=== PATIENT | female | born 1965 | race Caucasian/White ===

== ENCOUNTER 2019-08-28 06:20 | Day surgery (SDC) | payer OTHER, SELFPAY ==
[2019-08-25 11:45] VITALS: BMI 26.6
[2019-08-28 06:39] LABS: OR HCG Qualitative Urine Negative (Negative)
[2019-08-28 06:41] VITALS: BP 124/75; PULSE 74; RESP 18; TEMP 36.9; O2SAT 100
[2019-08-28] MEDS: sodium chloride 0.9% 1,000 ML 30 ML IV ×2 (06:46→07:27)
--- NOTE | 2019-08-28 06:56 | W.PM.OPSUD ---
Surgery/Procedure H&P Update DATE OF PROCEDURE: August 28, 2019 DATE H&P PERFORMED: 08/25/19 H&P UPDATE INFORMATION: I have reviewed H&P completed within last 30 days, I have examined patient prior to procedure and No changes to prior documentation PREOP DIAGNOSIS: Screening colonoscopy PLANNED PROCEDURE: Operation Date: 08/28/19 08:05 Proposed Procedures p Colonoscopy(Not Applicable) - Isreal Rodriguez MD
--- NOTE | 2019-08-28 07:30 | ANES.PREANE2 ---
Pre-Anesthetic Assessment Pre-Anesthetic Assessment: Height/Weight: Height 1.55 m Weight 63.957 kg Temp Pulse Resp BP Pulse Ox 98.4 F 74 18 124/75 100 08/28/19 06:41 08/28/19 06:41 08/28/19 06:41 08/28/19 06:41 08/28/19 06:41 Preop Diagnosis: Screening colonoscopy Proposed Procedure: Operation Date: 08/28/19 08:05 Proposed Procedures p Colonoscopy(Not Applicable) - Isreal Rodriguez MD Was Beta Kelsea taken within 24 hours: N/A Last intake: Intake Last Liquid Date 08/27/19 Last Liquid Time 20:00 Last Solid Date 08/26/19 Social: Social History: No alcohol and No tobacco Exam: Pre-Anes Outpt Exam: alert, oriented x 3, clear to auscultation bilaterally and regular rate & rhythm Airway: Submandibular: WNL Cervical ROM: WNL MP: 1 History/ROS: No significant history except as noted Pulmonary: Pulmonary: None reported CV/HEM: CV/HEM: None reported : : None reported Hepatic: Hepatic: None reported GI: GI: None reported Metabolic: Metabolic: None reported Musc/skel: Musc/skel: None reported Neuropsych: Neuropsych: None reported Anesthetic Plan: ASA status: 1 Anesthesia: MAC Risk of > 500 ml blood loss (7ml/kg in children): No Meds/Allergies Current Medications: Current Medications Generic Name Dose Route Start Last Admin Trade Name Freq PRN Reason Stop Dose Admin Sodium Chloride 1,000 mls @ 30 ml s/hr 08/28/19 06:30 08/28/19 07:25 Sodium Chloride 0.9% IV 08/29/19 06:29 Infused .Q24H EMMY Infusion Sodium Chloride 1,000 mls @ 30 ml s/hr 08/28/19 06:30 08/28/19 07:27 Sodium Chloride 0.9% IV 30 mls/hr .Q24H EMMY Administration PFSH Anesthesia PFSH: Surgical History History of appendectomy (1998) Open procedure via a midline infraumbilical incision for ruptured appendix History of tonsillectomy Family History Mother Hypertension Hypercholesterolemia Family history of thyroid problem Father Heart disease Denies family history of Anesthesia complication Bleeding disorder Social History Smoking and tobacco status: never smoked History of recent travel: No Data Anesthesia Other Labs: Laboratory Results - last 48 hr 08/28/19 06:37 Urine HCG, Qual Negative Cardiac Studies: No Data to Display
[2019-08-28 08:03] VITALS: BP 103/49; PULSE 70; RESP 16; TEMP 36.4; O2SAT 100
[2019-08-28 08:18] VITALS: BP 101/47; PULSE 62; RESP 18; O2SAT 100
== END 2019-08-28 08:25 | disposition home or self-care (01) ==
PROVIDERS: Visit Provider Surgery
PROC: 0DJD8ZZ Inspection of Lower Intestinal Tract, Via Natural or Artificial Opening Endoscopic (ICD-10-PCS; CPT 45378; principal; 2019-08-28 08:00)
DX: Z12.11 Encounter for screening for malignant neoplasm of colon (principal); K57.30 Diverticulosis of large intestine without perforation or abscess without bleeding
CPT/HCPCS: 12345; 45378; 84703; J2001; J2704; J7030

== ENCOUNTER 2019-09-10 08:27 | Emergency (ER) | payer OTHER, SELFPAY ==
[2019-09-10 08:43] VITALS: BP 131/80; PULSE 70; RESP 18; TEMP 36.8; O2SAT 100; BMI 26.4
--- NOTE | 2019-09-10 09:04 | ED_ITS ---
HPI - Wound/Laceration General: Chief Complaint: Wound/Laceration Stated Complaint: hand lac Time Seen by Provider: 09/10/19 08:54 History of Present Illness: HPI narrative: Laceration to the webspace between her index and middle finger that occurred while preparing food Onset (ago): minute(s) Location: other Place: home Patient tetanus UTD: No Context: accidental and sharp object use Associated symptoms: Reports no associated symptoms Review of Systems General: Reports: 10 or more systems reviewed and unremarkable except in HPI and below PFSH ED PFSH: Surgical History History of appendectomy (1998) Open procedure via a midline infraumbilical incision for ruptured appendix History of tonsillectomy Status post colonoscopy (08/28/19) Repeat in 10 years Family History Mother Hypertension Hypercholesterolemia Family history of thyroid problem Father Heart disease Denies family history of Anesthesia complication Bleeding disorder Social History Smoking and tobacco status: never smoked History of recent travel: No Physical Exam Extremity: NARRATIVE EXTREMITY EXAM: 0.5 cm laceration to the webspace between the index and middle finger Procedures Laceration Laceration 1: Site: hand Side (If applicable): left Size (cm): 1.5 Description: linear Depth: simple, single layer Local Anesthetic: lidocaine 1% and with epi Amount of anesthesia used (mL): 6 Pre-repair: wound explored Skin layer closed with: nylon Size (cm): 4-0 Number of sutures: 4 Technique: simple, interrupted Course Vital Signs: Vital signs: Vital Signs Temperature 98.3 F 09/10/19 08:43 Pulse Rate 70 09/10/19 08:43 Respiratory Rate 18 09/10/19 08:43 Blood Pressure 131/80 09/10/19 08:43 Pulse Oximetry 100 09/10/19 08:43 Discharge Plan Discharge Patient Disposition: Home, Self-Care Clinical Impression: Laceration Condition: Stable Prescriptions: New Tylenol-Codeine #3 300-30 mg tablet 1 tab PO Q6H PRN (Reason: pain) Qty: 10 RF: 0 No Action omega-3 fatty acids 500 mg capsule 500 mg PO DAILY RF: 0 multivitamin Tablet 1 tab PO DAILY RF: 0 calcium carbonate-vitamin D3 600 mg(1,500mg) -800 unit tablet 1 tab PO DAILY RF: 0 apple cider vinegar 600 mg Capsule 1 mg PO DAILY RF: 0 magnesium 250 mg Tablet 250 mg PO DAILY RF: 0 garlic Tablet 2,000 mg PO DAILY RF: 0 Curcumin 95 % Powder 1 % MISCELLANEOUS DAILY RF: 0 Discharge Orders: Discharge Order (Routine); Ordered 09/10/19 Ordered By: Parmjit Finnegan Patient Instructions: Laceration (ED) Coding Level of Care Code ED Plastic Cablemaking Machine Operator for Joe Willingham
[2019-09-10] MEDS: tetanus-diphtheria tox (adult) 0.5 mL SDV IM (09:36)
== END 2019-09-10 09:41 | disposition home or self-care (01) ==
PROVIDERS: Emergency Provider Family Medicine
DX: S61.412A Laceration without foreign body of left hand, initial encounter (principal); X58.XXXA Exposure to other specified factors, initial encounter; Z23 Encounter for immunization
CPT/HCPCS: 12001; 12345; 90714; 99281; 99282; J2001

== ENCOUNTER → 2019-09-25 11:16 | Outpatient (BNVA) | payer OTHER, SELFPAY | PROVIDERS: Visit Provider Family Medicine | DX: Z13.6 Encounter for screening for cardiovascular disorders (principal); Z48.02 Encounter for removal of sutures | CPT/HCPCS: 80053; 85025 ==

== ENCOUNTER 2019-11-02 14:33 | Outpatient (CLI) | payer OTHER, SELFPAY ==
--- NOTE | 2019-11-02 15:00 | MM_ITS ---
WS: [id number] Bilateral screening digital mammogram, 11/02/2019 Clinical Data: screening mammogram Comparison: 07/11/2018. Findings: The breast parenchymal pattern shows heterogeneous density No spiculated masses or clustered calcific ations are seen. There are no secondary signs of carcinoma. MM/[place] [id number] Impression: 1. Negative bilateral mammogram unchanged. 2. Recommend annual screening mammograms. BIRADS: 1-Negative FOLLOW UP: 1 Year Follow-up The CAD checker loader was used.
== END 2019-11-02 14:34 | disposition home or self-care (01) ==
LOC: RADSHAW 14:37
PROVIDERS: PCP Family Medicine; Visit Provider Family Medicine
DX: Z12.31 Encounter for screening mammogram for malignant neoplasm of breast (principal)
CPT/HCPCS: 77067

== ENCOUNTER → 2020-07-01 09:16 | Outpatient (BNVA) | payer OTHER, SELFPAY | PROVIDERS: PCP Family Medicine; Visit Provider Family Medicine | DX: Z12.31 Encounter for screening mammogram for malignant neoplasm of breast (principal); Z13.6 Encounter for screening for cardiovascular disorders | CPT/HCPCS: 80053; 80061; 85025 ==

== ENCOUNTER 2020-12-13 11:16 | Outpatient (CLI) | payer OTHER, SELFPAY ==
--- NOTE | 2020-12-13 12:00 | MM_ITS ---
WS: [id number] SCREENING DIGITAL MAMMOGRAM WITH CAD HISTORY: screening mammogram COMPARISON: 11/02/2019 and 07/11/2018 Bilateral CC and MLO views submitted. Computer aided detection analyzed. Breast composition: The breasts are heterogeneously dense, which may obscure small masses. Asymmetric density measuring 1.5 cm in the posterior central LEFT breast on the MLO projection. Canno t definitely identify this on the CC projection. Otherwise the asymmetries are stable. MM/[place] [id number] IMPRESSION: BI-RADS: 0-Incomplete: Need additional imaging evaluation FOLLOW UP: Need Additional Imaging LEFT breast: Spot compression views (MLO). True ML. Ultrasound to follow if abn ormality persists.
== END 2020-12-13 11:17 | disposition home or self-care (01) ==
LOC: RADSHAW 11:19
PROVIDERS: PCP Family Medicine; Visit Provider Family Medicine
DX: Z12.31 Encounter for screening mammogram for malignant neoplasm of breast (principal)
CPT/HCPCS: 77067

== ENCOUNTER 2021-01-03 13:53 | Outpatient (CLI) | payer OTHER, SELFPAY ==
--- NOTE | 2021-01-03 15:00 | MM_ITS ---
WS: [id number] ADDITIONAL VIEWS LEFT MAMMOGRAM LEFT BREAST ULTRASOUND HISTORY: abnormal mammogram COMPARISON: 12/13/2020, 11/02/2019 LEFT MAMMOGRAM: Spot compression views and true ML. Asymmetry nearly completely resolves. Ultrasound will be performed as there is dense fibroglandular t issue present. LEFT BREAST ULTRASOUND 2-D and color Doppler imaging submitted. LEFT breast ultrasound, limited. Ultrasound directed to the upper outer quadrant of the LEFT breast. There is no shadowing or mass hamlet ntified. Normal fibroglandular tissue. MM/[place] [id number] IMPRESSION: BI-RADS: 2-Benign FOLLOW UP: 1 Year Follow-up
--- NOTE | 2021-01-03 15:45 | US_ITS ---
WS: [id number] ADDITIONAL VIEWS LEFT MAMMOGRAM LEFT BREAST ULTRASOUND HISTORY: abnormal mammogram COMPARISON: 12/13/2020, 11/02/2019 LEFT MAMMOGRAM: Spot compression views and true ML. Asymmetry nearly completely resolves. Ultrasound will be performed as there is dense fibroglandular t issue present. LEFT BREAST ULTRASOUND 2-D and color Doppler imaging submitted. LEFT breast ultrasound, limited. Ultrasound directed to the upper outer quadrant of the LEFT breast. There is no shadowing or mass hamlet ntified. Normal fibroglandular tissue. US/US breast LT limited* [id number] IMPRESSION: BI-RADS: 2-Benign FOLLOW UP: 1 Year Follow-up
== END 2021-01-03 13:54 | disposition home or self-care (01) ==
LOC: RADSHAW 13:56
PROVIDERS: PCP Family Medicine; Visit Provider Family Medicine
DX: R92.8 Other abnormal and inconclusive findings on diagnostic imaging of breast (principal)
CPT/HCPCS: 76642; 77065

== ENCOUNTER → 2021-03-05 11:20 | Outpatient (BNVA) | payer OTHER, SELFPAY | PROVIDERS: PCP Family Medicine; Visit Provider Emergency Medicine | DX: Z20.822 Contact with and (suspected) exposure to COVID-19 (principal); U07.1 COVID-19 | CPT/HCPCS: 87426 ==

== ENCOUNTER 2021-03-11 11:33 | Outpatient (CLI) | payer OTHER, SELFPAY ==
[2021-03-11 11:45] VITALS: BP 127/81; PULSE 60; RESP 18; TEMP 36.9; O2SAT 99; BMI 27.3
[2021-03-11 12:16] VITALS: BP 123/75; PULSE 60; RESP 18; O2SAT 99
[2021-03-11 13:20] VITALS: BP 122/74; PULSE 67; RESP 18; TEMP 36.9; O2SAT 99
== END 2021-03-11 11:34 | disposition home or self-care (01) ==
LOC: OPS 11:35
PROVIDERS: PCP Family Medicine; Visit Provider Emergency Medicine
DX: U07.1 COVID-19 (principal)
CPT/HCPCS: 96365

== ENCOUNTER → 2021-06-30 08:41 | Outpatient (BNVA) | payer OTHER, SELFPAY | PROVIDERS: PCP Family Medicine; Visit Provider Family Medicine | DX: Z13.6 Encounter for screening for cardiovascular disorders (principal) | CPT/HCPCS: 80053; 80061; 81000; 85025 ==

== ENCOUNTER 2022-01-08 08:18 | Outpatient (CLI) | payer OTHER, SELFPAY ==
--- NOTE | 2022-01-08 08:29 | MM_ITS ---
WS: [id number] VIEWS: MLO and CC views both breasts. 3D digital tomosynthesis is also included in this exam. Comparison made with prior exam of 07/11/2018, 11/02/2019 and 12/13/2020. Findings: There was no sign of mass, architectural distortion or suspicious calcification in either breast. He terogeneously dense MM/[place] [id number] Impression: BI-RADS: 2-Benign FOLLOW-UP: 1 Year Follow-up This mammogram was also analyzed by the Computer Aided Detection System R2 Imag e Chef Instructor.
== END 2022-01-08 08:19 | disposition home or self-care (01) ==
PROVIDERS: PCP Family Medicine; Visit Provider Family Medicine
DX: Z12.31 Encounter for screening mammogram for malignant neoplasm of breast (principal)
CPT/HCPCS: 77063; 77067

== ENCOUNTER → 2022-06-29 07:52 | Outpatient (BNVA) | payer OTHER, SELFPAY | PROVIDERS: PCP Family Medicine; Visit Provider Family Medicine | DX: Z13.6 Encounter for screening for cardiovascular disorders (principal) | CPT/HCPCS: 80053; 80061; 85025 ==

== ENCOUNTER 2023-01-11 08:22 | Outpatient (CLI) | payer OTHER, SELFPAY ==
--- NOTE | 2023-01-11 08:31 | MM_ITS ---
WS: [id number] SCREENING DIGITAL TOMOSYNTHESIS MAMMOGRAM WITH CAD HISTORY: screening mammogram COMPARISON: 01/08/2022, 12/13/2020 Bilateral CC and MLO with tomosynthesis views submitted. Synthetic mammography reviewed. Computer aid ed detection analyzed. Breast composition: The breasts are heterogeneously dense, which may obscure small masses. No suspici ous masses, microcalcifications or architectural distortion. IMPRESSION: MM/[place] [id number] BI-RADS: 1-Negative FOLLOW UP: 1 Year Follow-up
== END 2023-01-11 08:23 | disposition home or self-care (01) ==
LOC: RAD 08:26
PROVIDERS: PCP Family Medicine; Visit Provider Family Medicine
DX: Z12.31 Encounter for screening mammogram for malignant neoplasm of breast (principal)
CPT/HCPCS: 77063; 77067; 80053; 80061; 85025

== ENCOUNTER → 2023-06-28 08:41 | Outpatient (BNVA) | payer OTHER, SELFPAY | PROVIDERS: PCP Family Medicine; Visit Provider Family Medicine | DX: Z13.6 Encounter for screening for cardiovascular disorders (principal); Z01.419 Encounter for gynecological examination (general) (routine) without abnormal findings | CPT/HCPCS: 80053; 80061; 84443; 85025; 87624 ==

== ENCOUNTER 2024-04-11 08:05 | Outpatient (CLI) | payer OTHER, SELFPAY ==
--- NOTE | 2024-04-11 08:20 | MM_ITS ---
WS: [id number] Bilateral screening 3D tomosynthesis digital mammogram, 04/11/2024 8:07 AM Clinical Data: screening Comparison: 01/11/2023, 01/08/2022, 01/03/2021, 12/13/2020, 11/02/2019, 07/11/2018. Findings: The right breast shows increased tissue density in the upper outer quadrant at 9 to 10 o'clock positi on. No spiculated masses nor clustered calcifications are associated with this tissue density. The le ft breast is normal. There are no secondary signs of carcinoma. MM/MM scr BI tomosynthesis [id number] Impression: Increased tissue density in upper outer quadrant at the 9 to 10 o'clock positio n and recommend repeat right cc view and right MLO L view with compression. Rec ommend right breast ultrasound in upper outer quadrant. BIRADS: 0 - Incomplete: Need additional imaging evaluation FOLLOW UP: See Report DENSITY: The breasts are heterogeneously dense, which may obscure small masses. The CAD checker stocker was used
== END 2024-04-11 08:06 | disposition home or self-care (01) ==
LOC: RAD 08:06
PROVIDERS: PCP Family Medicine; Visit Provider Family Medicine
DX: Z12.31 Encounter for screening mammogram for malignant neoplasm of breast (principal); N63.11 Unspecified lump in the right breast, upper outer quadrant
CPT/HCPCS: 77063; 77067

== ENCOUNTER 2024-05-09 09:34 | Outpatient (CLI) | payer OTHER, SELFPAY ==
--- NOTE | 2024-05-09 10:00 | MM_ITS ---
WS: [email or web address] VIEWS: MLO, CC, and ML views RIGHT breast. 3D digital tomosynthesis is also included in this exam. Comparison made with prior exam of 07/11/2018 and 04/11/2024. Findings: The breasts are heterogeneously dense, which may obscure small masses. There was no sign of discrete mass, tumor calcification or architectural distortion. Continued recomm endation of regional ultrasound of the RIGHT breast for further work-up. MM/MM diag RT tomosynthesis [id number] Impression: BI-RADS: 0 - Incomplete: Need additional imaging evaluation FOLLOW-UP: See Report This mammogram was also analyzed by the Computer Aided Detection System R2 Imag e Delivery Room Supervisor.
--- NOTE | 2024-05-09 10:30 | US_ITS ---
WS: [email or web address] Exam: US breast RT limited* [id number] Date/Time of Exam: 05/09/2024 10:15 AM Reason For Exam: abnormal R breast mammogram Regional ultrasound of the anterior RIGHT breast in the region of the 10 to 11 o'clock position is pe rformed. There is no sign of suspicious solid nodule or mass. No cysts were identified in this region. Recommendations: Continue yearly screening mammography. US/US breast RT limited* [id number] IMPRESSION: 1. No suspicious ultrasound findings. BI-RADS Category 2
== END 2024-05-09 09:35 | disposition home or self-care (01) ==
PROVIDERS: PCP Family Medicine; Visit Provider Family Medicine
DX: R92.8 Other abnormal and inconclusive findings on diagnostic imaging of breast (principal); R92.333 Mammographic heterogeneous density, bilateral breasts
CPT/HCPCS: 76642; 77061; G0279

== ENCOUNTER → 2024-06-29 09:42 | Outpatient (BNVA) | payer OTHER, SELFPAY | PROVIDERS: PCP Family Medicine; Visit Provider Family Medicine | DX: Z00.00 Encounter for general adult medical examination without abnormal findings (principal); Z12.4 Encounter for screening for malignant neoplasm of cervix | CPT/HCPCS: 80053; 80061; 84443; 85025; 87624 ==